=== PATIENT | female | born 2000 | race Caucasian/White ===

== ENCOUNTER 2022-04-17 11:45 | Outpatient (RCR) | payer OTHER, SELFPAY ==
--- NOTE | 2022-04-05 09:34 | PC.NURSE ---
Patient did not show up to the program today. Called and left her a message at 0930. Waiting for patient to call me back.
--- NOTE | 2022-04-05 09:49 | PC.NURSE ---
Called patient at 0945 and left a second message for patient to call me back.
--- NOTE | 2022-04-05 10:11 | PC.NURSE ---
Called patient for the 3rd time and she did not answer her phone. Called patient's emergency contact Faviola Bojorquez who is patient's aunt who patient lives with. Faviola went to check on Susannah and stated she is sleeping and will have Susannah call me when she gets up. Team is aware.
--- NOTE | 2022-04-05 14:03 | PC.NURSE ---
I called patient and woke her up. She apologized for oversleeping and stated she started a new job last week and was feeling overtired. She stated she really wants to attend the program and plans on coming on Friday. Denied SI or thoughts to harm herself. Denied any safety issues. PHP team is aware.
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
[2022-04-09 10:56] VITALS: BMI 22.4
--- NOTE | 2022-04-09 11:32 | PC.ADMIT ---
Patient is a 21 year old single female who lives with her aunt and aunts family who was referred to [facility] by crisis d/t increased sxs of depression. History of Respite in February 2022. Patient struggling with depression and anxiety sxs. Reports difficulty taking care of herself physically and emotionally. 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 Patient is alert and oriented x4. Calm and cooperative. Denied SI or thoughts to harm herself. Patient given a copy of her safety plan and reviewed the plan with her if needed. Medications reconciled with patient and patient's pharmacy. Patient reports taking medications as prescribed.
[2022-04-09 12:22] VITALS: BP 106/60; PULSE 60; TEMP 36.3
--- NOTE | 2022-04-11 15:13 | HO.PHPIOP ---
Case opened in treatment team.
--- NOTE | 2022-04-12 09:57 | PC.NURSE ---
Patient did not show up to the program this morning. I called patient and spoke with her. She stated she tried to call the program this morning but could not get through. She stated she will not be in today as she hardly slept last night. Denied any safety issues. Plans on returning to the program on Friday.
--- NOTE | 2022-04-18 09:19 | HO.PHPIOP ---
I called pt and left a message after she did not show for community meeting. I asked her to pls call mickey and reminded her that we might call emergency contact agent.
--- NOTE | 2022-04-18 09:25 | HO.PHPIOP ---
Pt called back and reported she has feels sick and has a sore throat, and will not be in treatment today.
--- NOTE | 2022-04-19 13:16 | HO.PHPIOP ---
I called and spoke to pt after she did not show for community meeting again. She said she has strep throat, and has started medication for this. She plans to be in program on Friday.
--- NOTE | 2022-04-22 11:45 | HO.PHPIOP ---
I called and spoke to pt. She reported still feeling quite sick and sounded it. She said it hurts to talk. She would like to resume treatment Friday if feeling better. I told her that I'd call the insurance company to see how to go about her return, and call back.
--- NOTE | 2022-04-23 11:49 | HO.PHPIOP ---
After calling pt's insurance reviewer to confirm that she can resume treatment under the current authorization, I called and spoke to pt. She sounded much better and said she feels much better and is ready to resume treatment tomorrow.
== END 2022-04-17 23:59 | disposition home or self-care (01) ==
LOC: HO.PHPA 11:45
PROVIDERS: Visit Provider Psychiatry & Neurology Psychiatry
DX: F33.1 Major depressive disorder, recurrent, moderate (principal); F41.1 Generalized anxiety disorder; F12.20 Cannabis dependence, uncomplicated; Z79.899 Other long term (current) drug therapy
CPT/HCPCS: 90791; 90792; 90853

== ENCOUNTER → 2025-06-02 12:16 | Outpatient (REF) | payer OTHER, SELFPAY ==
[2025-06-02 13:27] LABS: MANUAL DIFF FLAG NO
--- NOTE | 2025-06-02 13:27 | ECG_ITS ---
Test Reason : dizziness Blood Pressure : */* mmHG Vent. Rate : 69 BPM Atrial Rate : 69 BPM P-R Int : 122 ms QRS Dur : 74 ms QT Int : 390 ms P-R-T Axes : 50 55 38 degrees QTcB Int : 417 ms Normal sinus rhythm with sinus arrhythmia Normal ECG No previous ECGs available Referred By: Sara Wilson Electronically Signed By: Con Leiva
[2025-06-02 13:54] LABS: Hematocrit 40.3 % (37.0-47.0); Hemoglobin 13.4 g/dl (12.0-16.0); Imm Gran Abs Auto 0.02 X10*3/uL (0.00-0.03); Imm Gran Pct Auto 0.3 % (0.0-0.4); Lymphocytes Absolute Auto 2.1 X10*3/uL (1.2-4.9); Mean Corpuscular HGB Conc 33.3 g/dl (31.0-35.0); Mean Corpuscular Hemoglobin 28.3 pg (27.0-33.0); Mean Corpuscular Volume 85.2 fL (80.0-98.0); NRBC Abs Auto 0.000 X10*3/uL (0.0-0.012); NRBC Pct Auto 0.0 /100WBC (0.0-0.2); Platelet Count 314 X10*3/uL (160-400); Red Blood Count 4.73 X10*6/uL (4.20-5.50); White Blood Count 7.6 X10*3/uL (4.8-10.8)
--- OUTSIDE RECORDS SUMMARY | 2025-06-02 17:20 | XMS_ITS | Data Portability ---
Author Organization [facility] [employer]: [employer] [id number] Address [address] [place] [address] Assessment No assessment recorded. Plan of Treatment Reminders Order Date Submit Date Provider Last Modified By Organization Details Last Modified Time Details Appointments None record ed. Lab None record ed. Referral None record ed. Procedures None record ed. Surgeries None record ed. Imaging None record ed. Medication Orders None record ed. Patient TargetsNo targets recorded. Patient InstructionsNo instructions recorded. Reason for Referral None Reported. Medical Equipment None Reported. Medications Name Sig Start Date Stop Date Status Note LastModified by Organization Details LastModified Time quetiapine 25 mg tablet TAKE ONE TABLET BY MOUTH ONCE DAILY AT BEDTIME active Not Available Not Available No t Available buspirone 5 mg tablet TAKE 1 TABLET TWICE A DAY AND TAKE 1 TABLET DAILY NEEDED. active Not Available Not Available No t Available bupropion HCl SR 150 mg tablet,12 hr sustained-rele ase TAKE 1 TABLET BY MOUTH ONCE DAILY IN THE MORNING active Not Available Not Available No t Available sertraline 100 mg tablet TAKE 1 TABLET BY MOUTH DAILY active Not Available Not Available No t Available bupropion HCl 100 mg tablet active Not Available Not Availabl e Not Available buspirone 10 mg tablet TAKE 1 TABLET BY MOUTH 3 TIMES A DAY active Not Available Not Available No t Available hydroxyzine HCl 25 mg tablet TAKE 1 TABLET BY MOUTH 3 TIMES DAILY NEEDED FOR ANXIETY. (CAN MAKE TIRED) active Not Available Not Available No t Available sertraline 50 mg tablet TAKE 1 & 1/2 TABLETS BY MOUTH ONCE DAILY active Not Available Not Available No t Available escitalopram 10 mg tablet TAKE 1/2 TABLET BY MOUTH ONCE DAILY FOR 1 WEEK, THEN TAKE 1 TABLET BY MOUTH ONCE DAILY active Not Available Not Available No t Available Vitals None Recorded Social History None recorded. Functional Status None recorded. Mental Status None recorded. Family History Nothing Reported. Medical History No medical history recorded. Gynecological HistoryNo gynecological history recorded. Obstetrics History GPAL:G 0 P 0 0 0 0 Past Encounters Encounter ID Performer Location Encounter Start Date Encounter Closed Date Diagnosis/Indication Diagnosis SNOMED-CT Code Diagnosis ICD10 Code Diagnosis IMO Codes Diagnosis Note [id number] [address] [place] [address] 01/10/2020 10:44:26 01/10/2020 11:29:57 [id number] [address] [place] [address] 01/18/2022 15:44:25 01/18/2022 16:29:48 Health Concerns Section Related Observation LastModified by Organization Detai ls LastModified Time None Recorded Concern Status LastModified by Organization Details LastModified Time None Recorded Advance Directives Directive None Recorded Payers Insurance Date Sequence Insurance Name Policy Number Policy Morelos Covered Member ID Morelos Member ID Guarantor Name 01/05/2023 1 [facility] - [facility] (MEDICAID REPLACEMENT - HMO) SNOW Lemon [id number] Susannah Lemon OBGyn Episode No OBEpisode recorded.
== END ==
LOC: HO.CARD 12:16
PROVIDERS: PCP Pediatrics; Visit Provider Nurse Practitioner
DX: G47.61 Periodic limb movement disorder (principal); R42 Dizziness and giddiness; R06.83 Snoring
CPT/HCPCS: 36415; 84443; 85025; 93005

== ENCOUNTER → 2025-06-02 13:27 | Outpatient (BNV) | payer OTHER, SELFPAY | PROVIDERS: PCP Pediatrics; Visit Provider Internal Medicine Cardiovascular Disease | DX: R42 Dizziness and giddiness (principal) | CPT/HCPCS: 93010 ==